=== PATIENT | male | born 1995 | race Caucasian/White ===

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

== ENCOUNTER 2019-01-19 13:58 | Emergency (ER) | payer MEDICAID, OTHER ==
--- NOTE | 2019-01-19 15:06 | XRAY Report ---
Reason: L ankle pain Procedure Date: 01/19/2019 Accession Number: [id number] / [id number] Procedure: XR - Ankle 3 View LT CPT Code: FULL RESULT: EXAM: LEFT ANKLE RADIOGRAPHY EXAM DATE: 01/19/2019 02:34 PM. CLINICAL HISTORY: Pain after fall last night. Twisting injury. COMPARISON: None. TECHNIQUE: 3 views. FINDINGS: Bones: No acute fracture. No suspicious osseous lesion. Joints: No significant joint space narrowing. No dislocation. Other: None. IMPRESSION: No acute osseous abnormality. RADIA
--- NOTE | 2019-01-19 15:31 | ED Physician Documentation ---
PD HPI LOWER EXT INJURY - Stated complaint Stated Complaint: LT ANKLE PX - Chief complaint Chief Complaint: Ext Problem - History obtained from History obtained from: Patient - History of Present Illness PD HPI LOW EXT INJURY LOCATION: Left (At 1 AM he tripped and inverted his left ankle. He is unable to walk or bear weight. No other injuries.) Review of Systems Constitutional: reports: Reviewed and negative Nose: reports: Reviewed and negative Cardiac: reports: Reviewed and negative PD PAST MEDICAL HISTORY - Past Medical History Cardiovascular: None Respiratory: None Endocrine/Autoimmune: None GI: None : None HEENT: None Psych: None Derm: Eczema - Past Surgical History Past Surgical History: No - Present Medications Home Medications: Ambulatory Orders Medication Instructions Recorded Confirmed Albuterol Sulfate [Proair Hfa 1 - 2 puffs INH Q4H PRN 06/19/16 06/19/16 Inhaler] - Allergies Allergies/Adverse Reactions: Allergies Allergy/AdvReac Type Severity Reaction Status Date / Time acetaminophen [From [place]] AdvReac Intermediate Itching Verified 06/09/14 13:14 hydrocodone bitartrate * AdvReac Intermediate Itching Verified 06/09/14 13:14 [From [place]] - Social History Does the pt smoke?: No Smoking Status: Never smoker Does the pt drink ETOH?: No Does the pt have substance abuse?: No - Immunizations Immunizations are current?: Yes - POLST Patient has POLST: No PD ED PE NORMAL - Vitals Vital signs reviewed: Yes - General General: Alert and oriented X 3, No acute distress - Extremities Extremities: Other (Mild tenderness over the medial side of the ankle posterior to the malleolus on the left. No Achilles tenderness. Normal Achilles function. No tenderness over either malleolus. No proximal fibular tenderness. No foot tenderness. No deformity.) - Neuro Neuro: Alert and oriented X 3, Normal speech Results - Vitals Vitals: Vital Signs - 24 hr 01/19/19 14:16 Temperature 37 C Heart Rate 77 Respiratory 18 Rate Blood Pressure 132/68 H O2 Saturation 100 Oxygen O2 Source Room air - Rads (name of study) 3 views of the left ankle Radiology: EMP read contemporaneously (Normal) Departure - Departure Disposition: 01 Home, Self Care Clinical Impression: Left ankle sprain Qualifiers: Encounter type: initial encounter Involved ligament of ankle: other ligament Qualified Code(s): S93.492A - Sprain of other ligament of left ankle, initial encounter Condition: Good Record reviewed to determine appropriate education?: Yes Instructions: ED Sprain Ankle Comments: Ibuprofen as needed for pain. You can walk and bear weight as tolerated. Use the crutches and boot until then. Elevate as much as possible. Follow-up with your doctor in a week if not better. Forms: Activity restrictions
[2019-01-19 15:52] VITALS: BP 134/75
== END 2019-01-19 15:53 | disposition home or self-care (01) ==
LOC: ED 13:58
DX: S93.492A Sprain of other ligament of left ankle, initial encounter (principal); X50.1XXA Overexertion from prolonged static or awkward postures, initial encounter; W01.0XXA Fall on same level from slipping, tripping and stumbling without subsequent striking against object, initial encounter
CPT/HCPCS: 99282; 99283

== ENCOUNTER 2019-04-04 16:06 | Emergency (ER) | payer MEDICAID ==
[2019-04-04 16:30] LABS: RAPID STREP SCREEN Negative (Negative)
--- NOTE | 2019-04-04 16:47 | ED Physician Documentation ---
History of Present Illness - Stated complaint Stated Complaint: SORE THROAT, FEVER, COUGH, SOA - Chief complaint Chief Complaint: Heent - Additonal information Additional information: This is a 23-year-old male presents with 3-day of sore throat, fever, cough, nasal congestion. He states his sore throat is bad enough now that when he swallows food or liquid He feels it [place] on the way down even. He also at times feels his throat is inflamed enough that it affected his breathing, though he denies any shortness of breath at this time. He is concerned he has strep throat. He said multiple sick contacts. Review of Systems Constitutional: reports: Fever Nose: reports: Congestion Throat: reports: Sore throat PD PAST MEDICAL HISTORY - Past Medical History Cardiovascular: None Respiratory: None Endocrine/Autoimmune: None GI: None : None HEENT: None Psych: None Derm: Eczema - Past Surgical History Past Surgical History: Yes - Present Medications Home Medications: Ambulatory Orders Medication Instructions Recorded Confirmed Albuterol Sulfate [Proair Hfa 1 - 2 puffs INH Q4H PRN 06/19/16 06/19/16 Inhaler] Benzonatate [Tessalon Perle] 100 - 200 mg PO TID PRN #30 capsule 04/04/19 - Allergies Allergies/Adverse Reactions: Allergies Allergy/AdvReac Type Severity Reaction Status Date / Time acetaminophen [From [place]] AdvReac Intermediate Itching Verified 04/04/19 16:08 hydrocodone bitartrate * AdvReac Intermediate Itching Verified 04/04/19 16:08 [From [place]] - Social History Does the pt smoke?: No Smoking Status: Never smoker Does the pt drink ETOH?: Yes Does the pt have substance abuse?: No - Immunizations Immunizations are current?: Yes - POLST Patient has POLST: No PD ED PE NORMAL - Vitals Vital signs reviewed: Yes - General General: Alert and oriented X 3 - HEENT HEENT: PERRL, Other (Nasal congestion. Posterior pharynx is erythematous, tonsils are normal in size, no exudate. Airway widely patent) - Neck Neck: Supple, no meningeal sign - Cardiac Cardiac: RRR - Respiratory Respiratory: No respiratory distress, Clear bilaterally - Abdomen Abdomen: Soft - Derm Derm: Warm and dry - Neuro Neuro: Alert and oriented X 3 Results - Vitals Vitals: Vital Signs - 24 hr 01/04/20 01/04/20 16:08 17:16 Temperature 37.2 C 37.5 C Heart Rate 80 96 Respiratory 18 16 Rate Blood Pressure 146/76 H 149/76 H O2 Saturation 100 99 Oxygen O2 Source Room air - Labs Labs: Laboratory Tests 04/04/19 04/04/19 16:15 16:15 Influenza A (Rapid) Negative Influenza B (Rapid) Negative Group A Strep Rapid Negative PD MEDICAL DECISION MAKING - ED course ED course: Pt is well appearing on exam. His symptoms are most consistent with viral URI given his cough and nasal congestion. Strep and flu swabs are negative. He is tolerating PO, has a normal respiratory exam, widely patent airway. Normal O2 saturation and clear lungs make PNA highly unlikely. No signs of CHIEF [employer]IENT [employer]ER or other more serious infection at this time. I gave dexamethasone, prescribed tessalon perles, and discussed supportive care and return precautions and pt was discharged home in good condition. Departure - Departure Disposition: 01 Home, Self Care Clinical Impression: Viral pharyngitis Condition: Good Instructions: ED Pharyngitis Viral Follow-Up: Cydney Dia PA-C [Primary Care Provider] - Prescriptions: Benzonatate [Tessalon Perle] 100 - 200 mg PO TID PRN #30 capsule PRN Reason: Cough Comments: Your strep and flu swabs are negative today. I think this is most likely a viral illness. We have given you a steroid that should help calm down your throat, and I am also prescribing you Tessalon Perles for your cough. You may also take ibuprofen for discomfort. If you are having worsening symptoms like we talked about such as difficulty breathing, inability to swallow liquids, or swelling of your face or one side of your throat return to the emergency department. Discharge Date/Time: 04/04/19 17:22
[2019-04-04] MEDS ORDERED: DEXAMETHASONE 10 MG/ML VIAL PO STA (17:08)
[2019-04-04] MEDS ORDERED: CHERRY SYRUP 10 ML UDC PO ONE (17:08)
[2019-04-04 17:18] VITALS: BP 149/76
== END 2019-04-04 17:22 | disposition home or self-care (01) ==
LOC: ED 16:06
DX: J02.8 Acute pharyngitis due to other specified organisms (principal)
CPT/HCPCS: 87070; 87275; 87276; 87430; 99283; 99284; A9270